=== PATIENT | female | born 1990 | race Caucasian/White ===

== ENCOUNTER 2019-06-14 00:17 | Emergency (ER) | payer BC ==
[~2019-06-14] VITALS: Ht 160 cm; Wt 85.7 kg
[2019-06-14 00:34] VITALS: Ht 160 cm; Wt 85.7 kg
[2019-06-14 01:04] LABS: BASOPHIL % 0.3 % (0-2); RED CELL DISTRIBUTION WIDTH 13.3 % (11.5-14.5)
[2019-06-14 01:06] LABS: PLATELET COUNT 451 x10^3mcL (130-400)
[2019-06-14 01:31] LABS: CALCIUM 9.1 mg/dL (8.5-10.1); CARBON DIOXIDE 27.4 mmol/L (21-32); CHLORIDE SERUM 103 mmol/L (98-107); CREATININE SERUM 0.7 mg/dL (0.6-1.0); GFR1 > 60 mL/min; GLUCOSE SERUM 108 mg/dL (74-106); POTASSIUM SERUM 3.7 mmol/L (3.5-5.1); SODIUM SERUM 140 mmol/L (136-145)
[2019-06-14 01:36] LABS: ALBUMIN 3.6 g/dL (3.4-5.0); ALKALINE PHOSPHATASE 96 U/L (46-116); ALT/SGPT 67 U/L (14-59); AST/SGOT 28 U/L (15-37); BILIRUBIN TOTAL 0.33 mg/dL (0.20-1.00); LIPASE 95 IU/L (73-393); TOTAL PROTEIN, SERUM 7.9 g/dL (6.4-8.2)
[2019-06-14 04:05] VITALS: BP 108/71
== END 2019-06-14 04:05 | disposition home or self-care (01) ==
LOC: ED 00:17
PROVIDERS: Emergency Medicine
DX: O99.63 Diseases of the digestive system complicating the puerperium (principal); K29.70 Gastritis, unspecified, without bleeding
CPT/HCPCS: J1885; J2405; J3490; J7030; Q0092